=== PATIENT | male | born 1995 | race Caucasian/White ===

== ENCOUNTER 2018-02-02 01:08 | Emergency (ER) | payer OTHER ==
[~2018-02-02] VITALS: Ht 172.7 cm; Wt 130.2 kg
[2018-02-02 01:16] VITALS: TEMP 36.4; Ht 172.7 cm; Wt 130.2 kg
[2018-02-02] MEDS ORDERED: LIDOCAINE HCL 2% VISC SOLN 20 ML UDC PO STA (01:21)
[2018-02-02] MEDS ORDERED: ALUMINUM/MAGNESIUM SUSP 30 ML UDC PO STA (01:21)
[2018-02-02 01:35] LABS: BASO % 0.3 %; BASO ABS # 0.04 K/uL (0-0.2); EOS ABS # 0.25 K/uL (0-0.5); HEMATOCRIT 46.7 % (42-52); HEMOGLOBIN 16.9 g/dL (14.0-18.0); IG# 0.03 K/uL (0.00-0.02); LYMPH % 34.9 %; LYMPH ABS # 4.41 K/uL (1.2-3.4); MEAN CELL VOLUME 83.4 fL (80-100); MEAN CORPUSCULAR HEMOGLOBIN 30.2 pg (25-34); MEAN CORPUSCULAR HGB CONC 36.2 g/dl (32-36); MEAN PLATELET VOLUME 10.7 fL (7.4-10.4); MONO ABS # 1.01 K/uL (0.11-0.59); NEUT % 54.6 %; PLATELET COUNT 233 K/uL (130-400); RED CELL DISTRIBUTION WIDTH CV 13.7 % (11.5-14.5); RED CELL DISTRIBUTION WIDTH SD 41.5 fL (36.4-46.3); WHITE BLOOD COUNT 12.64 K/uL (4.8-10.8)
[2018-02-02] MEDS ORDERED: METF-384 PO (01:35)
[2018-02-02 02:30] LABS: ALBUMIN 3.6 gm/dl (3.4-5.0); ALKALINE PHOSPHATASE 74 U/L (45-117); ALT/SGPT 51 U/L (12-78); BLOOD UREA NITROGEN 14 mg/dl (7-18); CALCIUM 8.8 mg/dl (8.5-10.1); CARBON DIOXIDE 24 mmol/L (21-32); CREATININE 1.07 mg/dl (0.60-1.40); GLUCOSE 124 mg/dl (70-99); LIPASE 144 U/L (73-393); TOTAL PROTEIN 7.7 gm/dl (6.4-8.2)
[2018-02-02] MEDS ORDERED: PANTOprazole SOD 40 MG TAB PO STA (02:38)
[2018-02-02 02:47] VITALS: BP 129/52; PULSE 67; O2SAT 98
[2018-02-02 02:56] LABS: SODIUM 138 mmol/L (136-145)
--- NOTE | 2018-02-02 03:00 | EMERGENCY ROOM VISIT NOTE ---
History First contact with patient: 01:12 Chief Complaint: CARDIAC ASSESSMENT Stated Complaint: CHEST PAIN/BREATHING DIFFICULTY Nursing Triage Summary: Pt was on break at work when he started with a sharp, burning pain in his chest. Pt reports vomiting. Denies abdominal pain. Denies hx reflux. History of Present Illness The patient is a 22 year old male who presents to the Emergency Room with complaints of epigastric midsternal chest discomfort described as burning, ranging in severity 5 out of 10 for the past 2 hours shortly after eating pizza. He is not trying for his symptoms. Nothing makes it better or worse. It does not radiate. No history of similar symptoms in the past. Patient states taking a deep breath makes it slightly worse. He does not feel short of breath. Patient denies fevers, diaphoresis, back pain, abdominal pain, vomiting , diarrhea, leg pain or swelling. There is a family history of heart disease of his father in his late 40s. Patient does smoke. He denies history of blood pressure cholesterol or diabetes. Review of Systems An 10 system review of systems was completed with positives and pertinent negatives listed in the HPI. Past Medical/Surgical History None Social History Smoking Status: Current Every Day Smoker Alcohol Use: none Drug Use: none Marital Status: single Occupation Status: employed Current/Historical Medications Scheduled Metformin Hcl (Glucophage), 1,000 MG PO QAM Physical Exam Vital Signs Date Time Temp Pulse Resp B/P (MAP) Pulse Ox O2 Delivery O2 Flow Rate FiO2 02/02/18 02:47 67 18 129/52 98 Room Air 02/02/18 01:21 74 02/02/18 01:16 36.4 71 20 165/71 94 Room Air 02/02/18 01:16 Room Air 02/02/18 01:16 Room Air Physical Exam VITALS: Vitals are noted on the nurse's note and reviewed by myself. Vital signs hypertensive GENERAL: Pleasant male, in no acute distress, nondiaphoretic, well-developed well-nourished. SKIN: The skin was without rashes, erythema, edema, or bruising. There is no tenting of the skin. Capillary reflex less than 2 seconds. HEAD: Normocephalic atraumatic. EARS: External auditory canals clear, tympanic membranes pearly rivera without erythema or effusion bilaterally. EYES: Pupils equal round and reactive to light and accommodation. Conjunctivae without injection, sclerae without icterus. Extraocular movements intact. NOSE: Patent, turbinates without inflammation or discharge. MOUTH: Mucous membranes moist. Pharynx without erythema or exudate. Uvula midline. Airway patent. Tongue does not deviate. NECK: Supple without nuchal rigidity. No lymphadenopathy. No thyromegaly. Cervical spine is nontender. No JVD. HEART: Regular rate and rhythm without murmurs gallops or rubs. Tender to palpation epigastric region LUNGS: Clear to auscultation bilaterally without wheezes, rales or rhonchi. No retractions or accessory muscle use. ABDOMEN: Positive bowel sounds x 4. Normal tympanic percussion. Soft, nontender, without masses or organomegaly. Fitzgerald sign negative. No guarding or rebound tenderness. No CVA tenderness MUSCULOSKELETAL: No muscle atrophy, erythema, or edema noted. NEURO: Patient was alert and oriented to person place and time. Normal sensation to light and sharp touch. No focal neurological deficits. Medical Decision & Procedures Laboratory Results 02/02/18 01:20 Red Blood Count 5.60, Mean Corpuscular Volume 83.4, Mean Corpuscular Hemoglobin 30.2, Mean Corpuscular Hemoglobin Concent 36.2, Mean Platelet Volume 10.7, Neutrophils (%) (Auto) 54.6, Lymphocytes (%) (Auto) 34.9, Monocytes (%) (Auto) 8.0, Eosinophils (%) (Auto) 2.0, Basophils (%) (Auto) 0.3, Neutrophils # (Auto) 6.90, Lymphocytes # (Auto) 4.41, Monocytes # (Auto) 1.01, Eosinophils # (Auto) 0.25, Basophils # (Auto) 0.04 02/02/18 01:20 Test 02/02/18 01:20 02/02/18 01:27 White Blood Count 12.64 K/uL (4.8-10.8) Red Blood Count 5.60 M/uL (4.7-6.1) Hemoglobin 16.9 g/dL (14.0-18.0) Hematocrit 46.7 % (42-52) Mean Corpuscular Volume 83.4 fL (80-100) Mean Corpuscular Hemoglobin 30.2 pg (25-34) Mean Corpuscular Hemoglobin Concent 36.2 g/dl (32-36) Platelet Count 233 K/uL (130-400) Mean Platelet Volume 10.7 fL (7.4-10.4) Neutrophils (%) (Auto) 54.6 % Lymphocytes (%) (Auto) 34.9 % Monocytes (%) (Auto) 8.0 % Eosinophils (%) (Auto) 2.0 % Basophils (%) (Auto) 0.3 % Neutrophils # (Auto) 6.90 K/uL (1.4-6.5) Lymphocytes # (Auto) 4.41 K/uL (1.2-3.4) Monocytes # (Auto) 1.01 K/uL (0.11-0.59) Eosinophils # (Auto) 0.25 K/uL (0-0.5) Basophils # (Auto) 0.04 K/uL (0-0.2) RDW Standard Deviation 41.5 fL (36.4-46.3) RDW Coefficient of Variation 13.7 % (11.5-14.5) Immature Granulocyte % (Auto) 0.2 % Immature Granulocyte # (Auto) 0.03 K/uL (0.00-0.02) Anion Gap 9.0 mmol/L (3-11) Est Creatinine Clear Calc Drug Dose 140.2 ml/min Estimated GFR () 112.0 Estimated GFR (Non- 96.6 BUN/Creatinine Ratio 12.7 (10-20) Calcium Level 8.8 mg/dl (8.5-10.1) Total Bilirubin 0.4 mg/dl (0.2-1) Direct Bilirubin mg/dl (0-0.2) Aspartate Amino Transf (AST/SGOT) U/L (15-37) Alanine Aminotransferase (ALT/SGPT) 51 U/L (12-78) Alkaline Phosphatase 74 U/L (45-117) Troponin I < 0.015 ng/ml (0-0.045) Total Protein 7.7 gm/dl (6.4-8.2) Albumin 3.6 gm/dl (3.4-5.0) Lipase 144 U/L (73-393) Bedside Troponin I < 0.030 ng/ml (0-0.045) Medications Administered Medications (Trade) Dose Ordered Sig/Clarence Route Start Time Stop Time Status Last Admin Dose Admin Lidocaine HCl (Viscous Lidocaine 2% Soln) 10 ml NOW STAT PO 02/02/18 01:21 02/02/18 01:23 DC 02/02/18 01:21 10 ML Al Hydroxide/Mg Hydroxide (Maalox Susp) 30 ml NOW STAT PO 02/02/18 01:21 02/02/18 01:23 DC 02/02/18 01:21 30 ML Pantoprazole Sodium (Protonix Tab) 40 mg NOW STAT PO 02/02/18 02:38 02/02/18 02:39 DC 02/02/18 02:38 40 MG ED Course Prior records/ancillary studies reviewed. Triage Nursing notes reviewed. Additional history obtained from EMS The patient's history was concerning for chest pain. Differential diagnosis: Etiologies such as reflux, biliary pathology, cardiac ischemia, aortic dissection, pulmonary embolism, pneumonia, pneumothorax, musculoskeletal, infections, pericarditis, myocarditis, esophageal rupture, gastrointestinal, as well as others were entertained. Physical examination: As above. ER treatment provided: GI cocktail On reassessment the patient felt better. Diagnostic interpretation by me: The electrocardiogram was negative for pathologic change. Normal sinus, normal intervals, no acute ST-T wave changes, rate of 78. Impression normal sinus rhythm interpreted by myself The labs revealed negative troponin. Mild hyperglycemia without DKA Imaging studies: Chest x-ray with no acute consolidation, pneumothorax or free of my interpretation Ultrasound negative for cholecystitis Heart score is 1 as patient smokes Exam and history seem consistent with chest pain that most likely is from reflux. Patient felt better after being medicated as above. He was well- appearing. He had an unremarkable workup as above. She was advised to avoid acidic and spicy foods and take medications as directed. He is advised to follow-up family care in a few days or here in the ER sooner for chest pain, difficulty breathing, worsening signs or symptoms or as needed. He was strongly encouraged to quit smoking. By the evaluation outlined above emergent etiologies such as cardiac ischemia, aortic dissection, pulmonary embolism, pneumonia, pneumothorax, infections, pericarditis, myocarditis, gastrointestinal, as well as others were deemed relatively unlikely. Patient was advised to recheck his glucose with family care for rule out diabetes. The pt informed about the findings as listed above. All questions were answered and pleased with the treatment. Return instructions were outlined and the patient was discharged in stable condition. Outpatient prescription management: Protonix Referral: The patient was referred back to primary care physician for follow-up in 2 to 3 days for a recheck of the current condition. Case reviewed with my attending The chart was completed utilizing [employer] voice recognition software. Grammatical errors, random word insertions, pronoun errors, and incomplete sentences are an occassional consequence of this system due to software limitations, ambient noise, and hardware issues. Any formal questions or concerns about the content, text, or information contained within the body of this dictation should be directly addressed to the physician assistant store leader for clarification. Medical Decision As above Medication Reconcilliation Current Medication List: was personally reviewed by me Blood Pressure Screening Patient's blood pressure: Elevated blood pressure Blood pressure disposition: Elevated BP felt to be situational Impression Primary Impression: Chest pain in adult Additional Impression: Hyperglycemia Departure Information Dispostion Home / Self-Care Condition GOOD Referrals No Doctor, Assigned (PCP) Patient Instructions My [facility] Additional Instructions Your glucose was elevated tonight. Recheck this with family care for possible diabetes. Protonix 40 m tablet daily for next 2 weeks. Take this on an empty stomach. Try Maalox or Zantac for breakthrough symptoms for reflux. Avoid large meals. Avoid acidic foods. Rest and drink plenty of fluids as tolerated. Continue current medications. Avoid strenuous activities and anything that worsens your pain. Resume normal activities once your symptoms resolve. Return to the ER immediately for worsening or persistent chest pain, abdominal pain, black or blood in your stools, vomiting, fevers, chest pains, difficulty breathing, worsening of your condition, or as needed. Follow up with your primary physician in 2-3 days for a recheck of your current condition. Problem Qualifiers
[2018-02-02] MEDS ORDERED: PANT40TA PO (03:01)
--- NOTE | 2018-02-02 07:08 | DIAGNOSTIC IMAGING REPORT ---
ABDOMINAL ULTRASOUND, RIGHT UPPER QUADRANT HISTORY: epigastric pain, ? GB. COMPARISON: None. FINDINGS: Pancreas: The pancreatic tail is obscured by overlying bowel gas. The remaining portions of the pancreas are within normal limits. Liver: Unremarkable. Gallbladder: No gallbladder wall thickening. No gallstones. CBD: 3 mm. Right kidney: No hydronephrosis. IMPRESSION: No significant abnormality identified within the right upper quadrant. Electronically signed by: Kin Boone M.D. 02/02/2018 7:07 AM Dictated Date/Time: 02/02/2018 7:05 AM
--- NOTE | 2018-02-02 07:43 | DIAGNOSTIC IMAGING REPORT ---
CHEST ONE VIEW PORTABLE HISTORY: Atypical CHEST PAIN COMPARISON: None. FINDINGS: The lungs are clear. Cardiac silhouette is normal in size. No pleural effusions. No pneumothorax. IMPRESSION: No acute process. Electronically signed by: Kin Boone M.D. 02/02/2018 7:42 AM Dictated Date/Time: 02/02/2018 7:40 AM
== END 2018-02-02 03:09 | disposition home or self-care (01) ==
LOC: EDBD 01:08 → C.EDA 01:11
DX: R07.9 Chest pain, unspecified (principal); R73.9 Hyperglycemia, unspecified; F17.200 Nicotine dependence, unspecified, uncomplicated; Z79.84 Long term (current) use of oral hypoglycemic drugs; Z82.49 Family history of ischemic heart disease and other diseases of the circulatory system

== ENCOUNTER 2018-02-28 11:18 | Emergency (ER) | payer OTHER ==
[~2018-02-28] VITALS: Ht 170.2 cm; Wt 126.1 kg
[~2018-02-28 11:18] MED LIST: METF-384 PO
[2018-02-28 11:22] VITALS: BP 151/95; TEMP 36.9; Ht 170.2 cm; Wt 126.1 kg
[2018-02-28] MEDS ORDERED: RANI150T85 PO (11:29)
[2018-02-28] MEDS ORDERED: CYCLOBENZAPRINE HCL 10 MG TAB PO STA (11:44)
[2018-02-28] MEDS ORDERED: KETOROLAC TROMETHAMINE 60 MG/2 ML VIAL IM STA (11:44)
--- NOTE | 2018-02-28 12:22 | DIAGNOSTIC IMAGING REPORT ---
L-SPINE MIN 4 VIEWS ROUTINE CLINICAL HISTORY: 22 years-old Male presenting with low back pain, fall yesterday. TECHNIQUE: Frontal, bilateral oblique, lateral, and coned in lateral views of lumbar spine were obtained. COMPARISON: None. FINDINGS: No significant scoliosis. Normal lumbar lordosis. Vertebral bodies maintain normal height and alignment. Intervertebral disc spaces preserved. No advanced degenerative change. No radiographic evidence of a compression deformity, subluxation, or osseous neural foraminal narrowing. No pars defect. IMPRESSION: 1. No radiographic evidence of acute osseous injury of the lumbar spine. Electronically signed by: Andrew Jamison M.D. 02/28/2018 12:20 PM Dictated Date/Time: 02/28/2018 12:19 PM
--- NOTE | 2018-02-28 12:27 | EMERGENCY ROOM VISIT NOTE ---
ED Visit Note First contact with patient: 11:29 CHIEF COMPLAINT: Low back pain HISTORY OF PRESENT ILLNESS: This 22-year-old male patient presents to the emergency department, ambulatory, complaining of pain in the low back which began last night. The patient states he is playing softball with friends last evening, and as he was running towards a base, he slid, injuring the low back. The patient describes a twisting injury, and states he does not believe the fall or impact was the cause of his pain. He describes the pain in the middle of his back, and states with certain movements it does radiate upward. The pain is worse on the left side than the right, however he states it is mostly midline. The patient took 400 mg ibuprofen last night without relief of his symptoms. The pain was gradual in onset, is now constant and worse with movement. The pain significantly worsened this morning upon awakening. The patient notes the pain as dull and a 6/10. The patient denies any loss of control of their bowel or bladder functions. There has been no leg numbness or weakness, and no change in sensation. No nausea or vomiting or abdominal pain. No chest pain or shortness of breath. The patient has not had prior back injuries. No dysuria or increased urinary frequency. REVIEW OF SYSTEMS: A 10 system review of systems was performed with positives and pertinent negatives listed in the history of present illness. All other systems were reviewed and are negative. ALLERGIES: Aspirin, Cefaclor, Benadryl, clarithromycin, penicillin, sulfa MEDICATIONS: Metformin PMH: Diabetes SOCIAL HISTORY: The patient lives locally with family. He denies drug, alcohol use. He admits to smoking cigarettes daily. PHYSICAL EXAM: VITALS: Vitals are noted on the nurse's note and reviewed by myself. Vital signs stable. GENERAL: This is a 22-year-old obese white male, in no acute distress, nondiaphoretic, well-developed well-nourished. SKIN: The skin was without rashes, erythema, edema, or bruising. Capillary refill less than 2 seconds. NECK: Supple without nuchal rigidity. No cervical spine tenderness. No paraspinous muscle tenderness. HEART: Regular rate and rhythm without murmurs gallops or rubs. LUNGS: Clear to auscultation bilaterally without wheezes, rales or rhonchi. ABDOMEN: Positive bowel sounds x 4. Normal tympanic percussion. Soft, nontender, without masses or organomegaly. Fitzgerald sign negative. MUSCULOSKELETAL: No muscle atrophy, erythema, or edema noted of the back. There is mild tenderness over the lumbar spinous processes. There is no tenderness over the paraspinous muscles bilaterally. There is no tenderness over the thoracic spine or paraspinous muscles. There are muscle spasms present. The patient is slow to move around with maximum tenderness with position changes. Negative bilateral straight leg raise test. NEURO: Patient was alert and oriented to person place and time. Normal sensation to light and sharp touch. Deep tendon reflexes 2+ in the lower extremities. Dorsalis pedis pulse 2+ bilaterally. Strength 5/5 and equal in the bilateral lower extremities. RADIOLOGY: L-SPINE MIN 4 VIEWS ROUTINE CLINICAL HISTORY: 22 years-old Male presenting with low back pain, fall yesterday. TECHNIQUE: Frontal, bilateral oblique, lateral, and coned in lateral views of lumbar spine were obtained. COMPARISON: None. FINDINGS: No significant scoliosis. Normal lumbar lordosis. Vertebral bodies maintain normal height and alignment. Intervertebral disc spaces preserved. No advanced degenerative change. No radiographic evidence of a compression deformity, subluxation, or osseous neural foraminal narrowing. No pars defect. IMPRESSION: 1. No radiographic evidence of acute osseous injury of the lumbar spine. Electronically signed by: Andrew Jamison M.D. 02/28/2018 12:20 PM Dictated Date/Time: 02/28/2018 12:19 PM EMERGENCY DEPARTMENT COURSE: The patient was seen and evaluated as above. The patient was given 60 mg Toradol IM and 10 mg cyclobenzaprine for discomfort. X- rays of the lumbar spine were ordered and performed. These were reviewed by myself and radiologist as above. The patient's symptoms are consistent with an acute muscle strain versus contusion. His symptoms did improve mildly with medications given to him in the emergency department. He will be given a prescription for muscle relaxers and was encouraged to use anti-inflammatory medications scheduled for the next 2-3 days with close follow-up by his PCP and consideration for physical therapy. Patient was agreeable to the assessment and plan. Discharge instructions reviewed, the patient was discharged home in good condition I attest that I have personally reviewed the patient's current medication list. Patient was found to have an elevated blood pressure and was referred to their primary doctor for recheck and further treatment. Etiologies such as lumbago, sciatica, contusion, cauda equina, epidural abscess , osteomyelitis, fracture, aortic disease, metastatic disease, infection, renal colic, gastrointestinal, as well as others were entertained. DIAGNOSIS: Lumbar strain The chart was completed utilizing [employer] Speech voice recognition software. Grammatical errors, random word insertions, pronoun errors, and incomplete sentences are an occasional consequence of this system due to software limitations, ambient noise, and hardware issues. Any formal questions or concerns about the content, text, or information contained within the body of this dictation should be directly addressed to the provider for clarification. Current/Historical Medications Scheduled Metformin Hcl (Glucophage), 1,000 MG PO QAM Ranitidine (Zantac), 150 MG PO DAILY Scheduled PRN Cyclobenzaprine HCl (Cyclobenzaprine HCl), 1 TAB PO TID PRN for Muscle Spasms Allergies Coded Allergies: Cefaclor (Verified Allergy, Severe, THROAT CLOSES, 02/28/18) Clarithromycin (Verified Allergy, Intermediate, HIVES, 02/28/18) Diphenhydramine (Verified Allergy, Intermediate, HIVES, 02/28/18) Aspirin (Verified Allergy, Unknown, UNKNOWN - CHILDHOOD, 02/28/18) Penicillins (Unverified Allergy, Unknown, HIVES, 02/28/18) Sulfa Antibiotics (Unverified Allergy, Unknown, THROAT CLOSES, 02/28/18) Vital Signs Date Time Temp Pulse Resp B/P (MAP) Pulse Ox O2 Delivery O2 Flow Rate FiO2 02/28/18 12:39 82 16 96 02/28/18 11:22 36.9 89 20 151/95 97 Room Air Medications Administered Medications (Trade) Dose Ordered Sig/Clarence Route Start Time Stop Time Status Last Admin Dose Admin Ketorolac Tromethamine (Toradol Inj) 60 mg NOW STAT IM 02/28/18 11:44 02/28/18 11:45 DC 02/28/18 11:51 60 MG Cyclobenzaprine HCl (Flexeril Tab) 10 mg NOW STAT PO 02/28/18 11:44 02/28/18 11:46 DC 02/28/18 11:50 10 MG Departure Information Impression Primary Impression: Strain of lumbar region Dispostion Home / Self-Care Condition GOOD Prescriptions Cyclobenzaprine HCl (Cyclobenzaprine HCl) 10 Mg Tab 1 TAB PO TID Y for Muscle Spasms, #15 TABS Prov: Kathryn Morales PA-C 02/28/18 Referrals Jesus Alberto Manjarrez D.O. (PCP) Patient Instructions ED Exercises Lumbar Muscles, ED Sprain Strain Lumbar, My [facility] Additional Instructions You have been treated in the Emergency Department for Back Pain. You have received medicine in the emergency department which impairs your ability to operate a vehicle. It is illegal for you to drive after receiving these medicines. You have been prescribed Flexeril (cyclobenzaprine) 1 tab orally, up to three times per day. Do NOT exceed 30 mg (3 tabs) per day. Take your first dose at bedtime as it can make you drowsy. Always take all medications as prescribed. For pain control, you can use the following [id number] medicines (if >12 yo): Ibuprofen(Motrin, Advil) may be used for fever or pain. Use 600mg every six hours as needed. Take with food. Avoid using more than 2400mg in a 24 hour period. Do not use 2400mg per day for more than three consecutive days without physician direction. Prolonged inappropriate use can lead to stomach upset or ulcers. (AND/OR) Acetaminophen(Tylenol) may be used for fever or pain. Use 1000mg every six hours as needed. Avoid using more than 3000mg in a 24 hour period. *He may alternate these medications every 3-4 hours for increased pain control If this is an acute injury, ice can be applied to the area of pain for the first 3 days to help decrease pain and inflammation. After the first 3 days, a heating pad can be used over the area for continued soothing relief. You should schedule a follow-up appointment in 2-3 days with your Primary Care Provider for further evaluation and treatment of your back pain. Return to the Emergency Department if your current symptoms worsen despite treatment course outlined above, or if you develop any of the following symptoms : intractable pain despite aforementioned treatment course, loss of control of your bowel or bladder, numbness or tingling in your groin, or development of a fever. Problem Qualifiers Primary Impression: Strain of lumbar region Encounter type: initial encounter Qualified Codes: S39.012A - Strain of muscle, fascia and tendon of lower back, initial encounter
[2018-02-28] MEDS ORDERED: FLX10 PO (12:34)
[2018-02-28 12:39] VITALS: PULSE 82; O2SAT 96
== END 2018-02-28 12:40 | disposition home or self-care (01) ==
LOC: C.EDB 11:20 → C.EDD 12:40
DX: S39.012A Strain of muscle, fascia and tendon of lower back, initial encounter (principal); W19.XXXA Unspecified fall, initial encounter; Y92.320 Baseball field as the place of occurrence of the external cause; Y93.64 Activity, baseball; E11.9 Type 2 diabetes mellitus without complications; Z79.899 Other long term (current) drug therapy; Z88.1 Allergy status to other antibiotic agents; Z88.0 Allergy status to penicillin; Z88.2 Allergy status to sulfonamides; Z88.8 Allergy status to other drugs, medicaments and biological substances; F17.210 Nicotine dependence, cigarettes, uncomplicated